=== PATIENT | male | born 1990 | race American Indian/Alaskan Native ===

== ENCOUNTER 2017-07-16 09:24 | Emergency (ER) | payer OTHER ==
[2017-07-16 09:59] VITALS: BP 126/71
[2017-07-16] MEDS ORDERED: MOTRIN PO ONE (11:06)
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
== END 2017-07-16 12:36 | disposition home or self-care (01) ==
LOC: ED 09:24
DX: S13.4XXA Sprain of ligaments of cervical spine, initial encounter (principal); S39.012A Strain of muscle, fascia and tendon of lower back, initial encounter; F17.200 Nicotine dependence, unspecified, uncomplicated; F12.10 Cannabis abuse, uncomplicated; V49.49XA Driver injured in collision with other motor vehicles in traffic accident, initial encounter; Y93.89 Activity, other specified; Y92.89 Other specified places as the place of occurrence of the external cause; Y99.8 Other external cause status
CPT/HCPCS: 72040; 72100; 99283